=== PATIENT | male | born 1945 | race Caucasian/White ===

== ENCOUNTER 2021-06-01 00:59 | Emergency (ER) | payer OTHER, SELFPAY ==
[~2021-06-01] VITALS: Ht 175.3 cm; Wt 99.5 kg
[~2021-06-01 00:59] MED LIST: NOCURR
[2021-06-01 03:08] LABS: BASOPHILS % (AUTO) 0.6 % (0.0-2.0); EOSINOPHILS % (AUTO) 2.1 % (1.0-6.0); HEMATOCRIT 41.9 % (41-53); HEMOGLOBIN 13.9 g/dL (13.5-17.5); LYMPHOCYTES # (AUTO) 1.1 K/uL (1.0-4.8); LYMPHOCYTES % (AUTO) 13.7 % (22.0-44.0); MEAN CORPUSCULAR HEMOGLOBIN 29.9 pg (26.0-34.0); MEAN CORPUSCULAR HGB CONC 33.2 G/dL (31.0-37.0); MEAN CORPUSCULAR VOLUME 90 fL (80-100); MONOCYTES % (AUTO) 12.6 % (2.0-9.0); NEUTROPHILS # (AUTO) 5.8 K/uL (1.8-7.7); PLATELET COUNT (AUTO) 169 K/uL (150-450); RED BLOOD CELL COUNT(AUTO) 4.65 MIL/uL (4.50-5.90); RED CELL DISTRIBUTION WIDTH 14.3 % (11.5-14.5)
[2021-06-01 03:09] LABS: APPEARANCE,URINE CLEAR (CLEAR); BILIRUBIN,URINE NEGATIVE (NEGATIVE); GLUCOSE, URINE (UA) NEGATIVE (NEGATIVE); KETONES,URINE NEGATIVE (NEGATIVE); LEUKOCYTE ESTERASE ,URINE MODERATE (NEGATIVE); NITRATE,URINE NEGATIVE (NEGATIVE); OCCULT BLOOD,URINE TRACE (NEGATIVE); PH,URINE 5.5 (5.0-8.0); PROTEIN,URINE TRACE mg/dL (NEGATIVE); SPECIFIC GRAVITIY, URINE 1.019 (1.003-1.030); UROBILINOGEN,URINE <=1.0 mg/dL (<=1.0)
[2021-06-01 03:18] LABS: ANION GAP 7 mmol/L (8-16); CALCIUM, TOTAL 10.2 mg/dL (8.8-10.5); CARBON DIOXIDE 33 mmol/L (22-29); CHLORIDE 103 mmol/L (98-107); CREATININE 1.17 mg/dL (0.60-1.30); GLUCOSE,RANDOM 97 mg/dL (70-110); SODIUM SERUM 143 mmol/L (136-145); UREA NITROGEN, BLOOD 24 mg/dL (7-18)
[2021-06-01 03:19] LABS: GLOMERULAR FILTR. RATE CALC > 60 mL/min (>60)
[2021-06-01 03:21] LABS: INR 1.2 (0.9-1.1); PROTHROMBIN TIME 12.3 SEC (9.4-11.6)
[2021-06-01 03:24] LABS: BACTERIA,URINE Many /HPF (None Seen); SQUAMOUS EPITHELIAL CELL,UR Few /LPF (None Seen)
[2021-06-01 03:26] LABS: B-TYPE NATRIURETIC PEPTIDE 225 pg/mL (0-100)
[2021-06-01] MEDS ORDERED: FUROSEMIDE 20 MG/2 ML VIAL IVP ONE (03:30)
[2021-06-01 03:42] LABS: ALANINE AMINOTRANSFERASE 22 U/L (12-78); ALBUMIN 3.7 g/dL (3.4-5.0); ALKALINE PHOSPHATASE 88 U/L (46-116); ASPARTATE AMINOTRANSFERASE 21 U/L (15-37); BILIRUBIN,TOTAL 1.1 mg/dL (0.1-1.0); CREATINE KINASE, TOTAL ONLY 145 U/L (39-308); TOTAL PROTEIN, SERUM 7.1 g/dL (6.4-8.2)
[2021-06-01 03:55] VITALS: BP 104/43
[2021-06-01] MEDS ORDERED: ALBUTEROL SULFATE 2.5 MG/0.5 ML NEB SOLUTION NEB ONE (05:00)
[2021-06-01] MEDS ORDERED: IPRATROPIUM BROMIDE 0.5 MG/2.5 ML NEB SOLUTION NEB ONE (05:00)
[2021-06-01] MEDS ORDERED: AZIT250T9 PO (06:31)
[2021-06-01] MEDS ORDERED: AZITHROMYCIN 500 MG TABLET PO ONE (06:45)
== END 2021-06-01 07:35 ==
LOC: EMS 01:00
DX: J40 Bronchitis, not specified as acute or chronic (principal); I11.0 Hypertensive heart disease with heart failure; I50.9 Heart failure, unspecified; J44.9 Chronic obstructive pulmonary disease, unspecified; F12.90 Cannabis use, unspecified, uncomplicated; F17.210 Nicotine dependence, cigarettes, uncomplicated
CPT/HCPCS: 36415; 71045; 80053; 81001; 82550; 83880; 84484; 85025; 85610; 85730; 87086; 93005; 94640; 96374; 99285; J1940; Q9967; J7613

== ENCOUNTER 2021-06-30 20:44 | Inpatient (IN) | payer OTHER ==
[~2021-06-30] VITALS: Ht 175.3 cm; Wt 104.1 kg
[~2021-06-30 20:44] MED LIST changes: +AZIT250T9 PO
[2021-06-30] MEDS ORDERED: FUROSEMIDE 40 MG/4 ML VIAL IVP ONE (21:30)
[2021-06-30 21:38] LABS: COVID AG,FIA SOURCE NASAL SWAB
[2021-06-30 21:41] LABS: BASOPHILS % (AUTO) 0.5 % (0.0-2.0); HEMATOCRIT 39.4 % (41-53); HEMOGLOBIN 12.9 g/dL (13.5-17.5); LYMPHOCYTES # (AUTO) 0.7 K/uL (1.0-4.8); LYMPHOCYTES % (AUTO) 8.3 % (22.0-44.0); MEAN CORPUSCULAR HEMOGLOBIN 29.9 pg (26.0-34.0); MEAN CORPUSCULAR HGB CONC 32.9 G/dL (31.0-37.0); MEAN CORPUSCULAR VOLUME 91 fL (80-100); MONOCYTES # (AUTO) 0.9 K/uL (0.1-1.0); MONOCYTES % (AUTO) 10.8 % (2.0-9.0); NEUTROPHILS # (AUTO) 6.6 K/uL (1.8-7.7); NEUTROPHILS % (AUTO) 79.4 % (40.0-70.0); PLATELET COUNT (AUTO) 169 K/uL (150-450); RED BLOOD CELL COUNT(AUTO) 4.33 MIL/uL (4.50-5.90); RED CELL DISTRIBUTION WIDTH 14.4 % (11.5-14.5)
[2021-06-30 21:52] LABS: ANION GAP 6 mmol/L (8-16); CALCIUM, TOTAL 9.7 mg/dL (8.8-10.5); CARBON DIOXIDE 30 mmol/L (22-29); CHLORIDE 106 mmol/L (98-107); CREATININE 0.84 mg/dL (0.60-1.30); GLOMERULAR FILTR. RATE CALC > 60 mL/min (>60); GLUCOSE,RANDOM 73 mg/dL (70-110); POTASSIUM 4.6 mmol/L (3.5-5.1); SODIUM SERUM 142 mmol/L (136-145); UREA NITROGEN, BLOOD 17 mg/dL (7-18)
[2021-06-30 21:54] LABS: INR 1.1 (0.9-1.1); PROTHROMBIN TIME 11.5 SEC (9.4-11.6)
[2021-06-30 21:56] LABS: B-TYPE NATRIURETIC PEPTIDE 549 pg/mL (0-100)
[2021-06-30 21:58] LABS: ALANINE AMINOTRANSFERASE 17 U/L (12-78); ALBUMIN 3.4 g/dL (3.4-5.0); ALKALINE PHOSPHATASE 76 U/L (46-116); ASPARTATE AMINOTRANSFERASE 17 U/L (15-37); BILIRUBIN,TOTAL 0.5 mg/dL (0.1-1.0); TOTAL PROTEIN, SERUM 7.1 g/dL (6.4-8.2)
[2021-06-30] MEDS ORDERED: FURO40 PO (22:38)
[2021-06-30] MEDS ORDERED: METO50 PO (22:38)
[2021-06-30] MEDS ORDERED: APIX5TAB PO (22:38)
[2021-06-30] MEDS ORDERED: IPRAHFA IH (22:38)
[2021-06-30] MEDS ORDERED: ACETAMINOPHEN 325 MG TABLET PO PRN (22:45)
[2021-06-30] MEDS ORDERED: ONDANSETRON HCL 4 MG/2 ML VIAL IVP PRN ×2 (22:45)
[2021-06-30] MEDS ORDERED: 0.9% SODIUM CHLORIDE 10 ML SYRINGE IVP PRN (22:45)
[2021-06-30] MEDS ORDERED: HYDROCODONE/ACETAMINOPHEN 5-325 MG TABLET PO PRN (22:45)
[2021-06-30] MEDS ORDERED: MAGNESIUM HYDROXIDE SUSPENSION 30 ML UDCUP PO PRN (22:45)
[2021-06-30] MEDS ORDERED: BISACODYL 10 MG RECTAL RECTAL SUPPOSITORY PR PRN (22:45)
[2021-06-30] MEDS ORDERED: MORPHINE SULFATE 2 MG/ML SYRINGE IVP PRN (22:45)
[2021-06-30] MEDS ORDERED: ZOLPIDEM TARTRATE 5 MG TABLET PO PRN (22:45)
[2021-06-30 22:56] LABS: APPEARANCE,URINE CLEAR (CLEAR); BILIRUBIN,URINE NEGATIVE (NEGATIVE); GLUCOSE, URINE (UA) NEGATIVE (NEGATIVE); KETONES,URINE NEGATIVE (NEGATIVE); LEUKOCYTE ESTERASE ,URINE NEGATIVE (NEGATIVE); NITRATE,URINE NEGATIVE (NEGATIVE); OCCULT BLOOD,URINE NEGATIVE (NEGATIVE); PROTEIN,URINE NEGATIVE (NEGATIVE); SPECIFIC GRAVITIY, URINE 1.007 (1.003-1.030); UROBILINOGEN,URINE <=1.0 mg/dL (<=1.0)
[2021-07-01] MEDS ORDERED: HEPARIN SODIUM,PORCINE 5,000 UNITS/ML VIAL SQ SCH
[2021-07-01] MEDS: PANTOPRAZOLE SODIUM 40 MG DR TABLET PO SCH (08:43)
[2021-07-01] MEDS: ASPIRIN 81 MG DR TABLET PO SCH (08:43)
[2021-07-01] MEDS: FUROSEMIDE 20 MG/2 ML VIAL IVP SCH ×2 (08:43→20:07)
[2021-07-01] MEDS: DOCUSATE SODIUM 100 MG CAPSULE PO SCH ×2 (08:43→20:07)
[2021-07-01] MEDS: CARVEDILOL 6.25 MG TABLET PO SCH ×2 (08:43→20:05)
[2021-07-01] MEDS: IPRATROPIUM BROMIDE HFA 17 MCG/PUFF 12.9 GM INHALER IH SCH ×2 (08:44→14:15)
[2021-07-01 08:45] VITALS: BP 132/81
[2021-07-01] MEDS: METOPROLOL TARTRATE 50 MG TABLET PO SCH ×2 (14:00→20:05)
[2021-07-01 14:10] VITALS: BP 96/48
[2021-07-01] MEDS: APIXABAN 5 MG TABLET PO SCH ×2 (14:15→20:07)
[2021-07-01] MEDS: ALBUTEROL SULFATE 2.5 MG/0.5 ML NEB SOLUTION NEB PRN (18:56)
[2021-07-01] MEDS: IPRATROPIUM BROMIDE 0.5 MG/2.5 ML NEB SOLUTION NEB PRN (18:56)
[2021-07-01] MEDS: ACETAMINOPHEN 325 MG TABLET PO PRN (20:07)
[2021-07-01 20:08] VITALS: BP 96/58
[2021-07-02] MEDS: ACETAMINOPHEN 325 MG TABLET PO PRN ×2 (02:52→20:41)
[2021-07-02 04:49] VITALS: BP 105/72
[2021-07-02 08:07] VITALS: BP 106/65
[2021-07-02] MEDS: DOCUSATE SODIUM 100 MG CAPSULE PO SCH ×2 (09:00→20:41)
[2021-07-02] MEDS: FUROSEMIDE 20 MG/2 ML VIAL IVP SCH ×2 (09:00→20:41)
[2021-07-02] MEDS: CARVEDILOL 6.25 MG TABLET PO SCH ×2 (09:00→21:00)
[2021-07-02] MEDS: METOPROLOL TARTRATE 50 MG TABLET PO SCH ×2 (09:00→21:00)
[2021-07-02] MEDS: ASPIRIN 81 MG DR TABLET PO SCH (09:27)
[2021-07-02] MEDS: PANTOPRAZOLE SODIUM 40 MG DR TABLET PO SCH (09:27)
[2021-07-02] MEDS: APIXABAN 5 MG TABLET PO SCH ×2 (09:27→20:44)
[2021-07-02] MEDS: ALBUTEROL SULFATE 2.5 MG/0.5 ML NEB SOLUTION NEB PRN ×2 (09:40→21:09)
[2021-07-02] MEDS: IPRATROPIUM BROMIDE 0.5 MG/2.5 ML NEB SOLUTION NEB PRN ×2 (09:40→21:09)
[2021-07-02 16:03] VITALS: BP 112/73
[2021-07-02 19:45] VITALS: BP 93/60
[2021-07-03] MEDS: ACETAMINOPHEN 325 MG TABLET PO PRN (01:24)
[2021-07-03 04:25] VITALS: BP 98/51
[2021-07-03 08:07] VITALS: BP 110/70
[2021-07-03] MEDS: METOPROLOL TARTRATE 50 MG TABLET PO SCH (09:00)
[2021-07-03] MEDS: ASPIRIN 81 MG DR TABLET PO SCH (10:33)
[2021-07-03] MEDS: FUROSEMIDE 20 MG/2 ML VIAL IVP SCH (10:33)
[2021-07-03] MEDS: APIXABAN 5 MG TABLET PO SCH (10:33)
[2021-07-03] MEDS: CARVEDILOL 6.25 MG TABLET PO SCH (10:33)
[2021-07-03] MEDS: PANTOPRAZOLE SODIUM 40 MG DR TABLET PO SCH (10:33)
[2021-07-03] MEDS: DOCUSATE SODIUM 100 MG CAPSULE PO SCH (10:33)
[2021-07-03] MEDS: ALBUTEROL SULFATE 2.5 MG/0.5 ML NEB SOLUTION NEB PRN (12:12)
[2021-07-03] MEDS: IPRATROPIUM BROMIDE 0.5 MG/2.5 ML NEB SOLUTION NEB PRN (12:12)
[2021-07-03 15:39] VITALS: BP 96/63
== END 2021-07-03 16:35 | DRG 291 ==
LOC: EMS 20:50 → 6S 07-01 05:06
PROVIDERS: ADMIT Internal Medicine; ATTEND Internal Medicine
DX: I11.0 Hypertensive heart disease with heart failure (principal); I50.23 Acute on chronic systolic (congestive) heart failure; E66.9 Obesity, unspecified; G47.33 Obstructive sleep apnea (adult) (pediatric); Z68.33 Body mass index [BMI] 33.0-33.9, adult; F17.210 Nicotine dependence, cigarettes, uncomplicated; F12.90 Cannabis use, unspecified, uncomplicated; Z20.822 Contact with and (suspected) exposure to COVID-19; I48.91 Unspecified atrial fibrillation; J44.9 Chronic obstructive pulmonary disease, unspecified; Z86.73 Personal history of transient ischemic attack (TIA), and cerebral infarction without residual deficits; Z79.01 Long term (current) use of anticoagulants; Z79.899 Other long term (current) drug therapy; Z79.82 Long term (current) use of aspirin
CPT/HCPCS: 71045; 80053; 81003; 83880; 84484; 85025; 85610; 85730; 93005; 94640; 99285; J1940; J3535; 36415-L1; 36415-TC; J7613

== ENCOUNTER 2021-07-21 06:46 | Inpatient (IN) | payer OTHER ==
[~2021-07-21] VITALS: Ht 175.3 cm; Wt 108.5 kg
[~2021-07-21 06:46] MED LIST changes: +APIX5TAB PO; +FURO40 PO; +IPRAHFA IH; +METO50 PO
[2021-07-21 07:31] LABS: COVID AG,FIA SOURCE NASOPHARYNGEAL
[2021-07-21 07:35] LABS: BASOPHILS % (AUTO) 0.6 % (0.0-2.0); EOSINOPHILS % (AUTO) 1.6 % (1.0-6.0); HEMATOCRIT 38.2 % (41-53); HEMOGLOBIN 12.7 g/dL (13.5-17.5); LYMPHOCYTES # (AUTO) 0.7 K/uL (1.0-4.8); LYMPHOCYTES % (AUTO) 13.7 % (22.0-44.0); MEAN CORPUSCULAR HEMOGLOBIN 30.1 pg (26.0-34.0); MEAN CORPUSCULAR HGB CONC 33.3 G/dL (31.0-37.0); MEAN CORPUSCULAR VOLUME 90 fL (80-100); MONOCYTES # (AUTO) 0.7 K/uL (0.1-1.0); MONOCYTES % (AUTO) 13.2 % (2.0-9.0); NEUTROPHILS # (AUTO) 3.9 K/uL (1.8-7.7); NEUTROPHILS % (AUTO) 70.9 % (40.0-70.0); PLATELET COUNT (AUTO) 141 K/uL (150-450); RED BLOOD CELL COUNT(AUTO) 4.23 MIL/uL (4.50-5.90); RED CELL DISTRIBUTION WIDTH 14.4 % (11.5-14.5)
[2021-07-21] MEDS ORDERED: FUROSEMIDE 40 MG/4 ML VIAL IVP ONE (07:45)
[2021-07-21 07:49] LABS: ANION GAP 7 mmol/L (8-16); CALCIUM, TOTAL 9.6 mg/dL (8.8-10.5); CARBON DIOXIDE 32 mmol/L (22-29); CHLORIDE 106 mmol/L (98-107); CREATININE 0.88 mg/dL (0.60-1.30); GLOMERULAR FILTR. RATE CALC > 60 mL/min (>60); GLUCOSE,RANDOM 130 mg/dL (70-110); SODIUM SERUM 145 mmol/L (136-145); UREA NITROGEN, BLOOD 10 mg/dL (7-18)
[2021-07-21 07:55] LABS: ALANINE AMINOTRANSFERASE 16 U/L (12-78); ALBUMIN 3.3 g/dL (3.4-5.0); ALKALINE PHOSPHATASE 104 U/L (46-116); ASPARTATE AMINOTRANSFERASE 15 U/L (15-37); B-TYPE NATRIURETIC PEPTIDE 580 pg/mL (0-100); BILIRUBIN,TOTAL 0.7 mg/dL (0.1-1.0); CREATINE KINASE, TOTAL ONLY 61 U/L (39-308); PHOSPHORUS 2.9 mg/dL (2.5-4.9); TOTAL PROTEIN, SERUM 6.7 g/dL (6.4-8.2)
[2021-07-21 07:58] LABS: INFLUENZA TYPE A NEGATIVE FOR TYPE A (NEGATIVE); INFLUENZA TYPE B NEGATIVE FOR TYPE B (NEGATIVE)
[2021-07-21 08:39] LABS: INR 1.1 (0.9-1.1); PROTHROMBIN TIME 11.9 SEC (9.4-11.6)
[2021-07-21] MEDS ORDERED: ACETAMINOPHEN 325 MG TABLET PO PRN (09:15)
[2021-07-21] MEDS ORDERED: ALBUTEROL SULFATE 2.5 MG/0.5 ML NEB SOLUTION NEB PRN (09:15)
[2021-07-21] MEDS ORDERED: ONDANSETRON HCL 4 MG/2 ML VIAL IVP PRN (09:15)
[2021-07-21 09:33] VITALS: BP 148/91
[2021-07-21 14:30] VITALS: BP 92/59
[2021-07-21] MEDS: PredniSONE 20 MG TABLET PO SCH (16:03)
[2021-07-21] MEDS: ALBUTEROL SULFATE 2.5 MG/0.5 ML NEB SOLUTION NEB PRN (18:40)
[2021-07-21 19:10] VITALS: BP 114/75
[2021-07-21] MEDS: APIXABAN 5 MG TABLET PO SCH (20:39)
[2021-07-21] MEDS: METOPROLOL TARTRATE 25 MG TABLET PO SCH (20:40)
[2021-07-21] MEDS: DOCUSATE SODIUM 100 MG CAPSULE PO SCH (20:40)
[2021-07-21 23:40] VITALS: BP 113/72
[2021-07-22 04:10] VITALS: BP 101/59
[2021-07-22 07:35] VITALS: BP 96/59
[2021-07-22] MEDS: FUROSEMIDE 40 MG/4 ML VIAL IVP SCH (08:06)
[2021-07-22] MEDS: DOCUSATE SODIUM 100 MG CAPSULE PO SCH ×2 (08:06→19:58)
[2021-07-22] MEDS: PredniSONE 20 MG TABLET PO SCH (08:06)
[2021-07-22] MEDS: APIXABAN 5 MG TABLET PO SCH ×2 (08:06→19:58)
[2021-07-22] MEDS: METOPROLOL TARTRATE 25 MG TABLET PO SCH ×2 (08:07→20:01)
[2021-07-22] MEDS: FAMOTIDINE 20 MG TABLET PO SCH (08:07)
[2021-07-22 11:51] VITALS: BP 101/61
[2021-07-22] MEDS: ALBUTEROL SULFATE 2.5 MG/0.5 ML NEB SOLUTION NEB PRN ×2 (12:32→18:47)
[2021-07-22 15:42] VITALS: BP 101/58
[2021-07-22] MEDS ORDERED: BISACODYL 10 MG RECTAL RECTAL SUPPOSITORY PR PRN (16:45)
[2021-07-22] MEDS: MAGNESIUM HYDROXIDE SUSPENSION 30 ML UDCUP PO PRN (17:12)
[2021-07-22 19:54] VITALS: BP 97/67
[2021-07-23] VITALS (7 sets, daily range): BP systolic 98–111; BP diastolic 58–72
[2021-07-23] MEDS: DOCUSATE SODIUM 100 MG CAPSULE PO SCH ×2 (08:11→21:05)
[2021-07-23] MEDS: FUROSEMIDE 40 MG/4 ML VIAL IVP SCH (08:11)
[2021-07-23] MEDS: METOPROLOL TARTRATE 25 MG TABLET PO SCH ×2 (08:12→21:00)
[2021-07-23] MEDS: FAMOTIDINE 20 MG TABLET PO SCH (08:12)
[2021-07-23] MEDS: PredniSONE 20 MG TABLET PO SCH (08:12)
[2021-07-23] MEDS: APIXABAN 5 MG TABLET PO SCH ×2 (08:12→21:05)
[2021-07-23] MEDS: MAGNESIUM HYDROXIDE SUSPENSION 30 ML UDCUP PO PRN (08:14)
[2021-07-23] MEDS: ALBUTEROL SULFATE 2.5 MG/0.5 ML NEB SOLUTION NEB PRN (10:17)
[2021-07-23] MEDS ORDERED: PredniSONE 20 MG TABLET PO ONE (10:30)
[2021-07-23 11:42] LABS: BASOPHILS % (AUTO) 0.1 % (0.0-2.0); EOSINOPHILS % (AUTO) 0.2 % (1.0-6.0); HEMATOCRIT 39.1 % (41-53); HEMOGLOBIN 12.8 g/dL (13.5-17.5); LYMPHOCYTES # (AUTO) 0.6 K/uL (1.0-4.8); LYMPHOCYTES % (AUTO) 6.4 % (22.0-44.0); MEAN CORPUSCULAR HEMOGLOBIN 29.3 pg (26.0-34.0); MEAN CORPUSCULAR HGB CONC 32.7 G/dL (31.0-37.0); MEAN CORPUSCULAR VOLUME 90 fL (80-100); MONOCYTES # (AUTO) 0.9 K/uL (0.1-1.0); MONOCYTES % (AUTO) 9.2 % (2.0-9.0); NEUTROPHILS # (AUTO) 8.3 K/uL (1.8-7.7); NEUTROPHILS % (AUTO) 84.1 % (40.0-70.0); PLATELET COUNT (AUTO) 155 K/uL (150-450); RED BLOOD CELL COUNT(AUTO) 4.35 MIL/uL (4.50-5.90); RED CELL DISTRIBUTION WIDTH 14.2 % (11.5-14.5)
[2021-07-23 11:57] LABS: ANION GAP 5 mmol/L (8-16); CALCIUM, TOTAL 9.8 mg/dL (8.8-10.5); CARBON DIOXIDE 34 mmol/L (22-29); CHLORIDE 104 mmol/L (98-107); CREATININE 0.84 mg/dL (0.60-1.30); GLOMERULAR FILTR. RATE CALC > 60 mL/min (>60); GLUCOSE,RANDOM 125 mg/dL (70-110); POTASSIUM 4.6 mmol/L (3.5-5.1); SODIUM SERUM 143 mmol/L (136-145); UREA NITROGEN, BLOOD 20 mg/dL (7-18)
[2021-07-23] MEDS: MOMETASONE FUROATE 50 MCG/SPRAY 17 GM NASAL SPRAY NASAL SCH ×2 (12:10→21:06)
[2021-07-23] MEDS: MONTELUKAST SODIUM 10 MG TABLET PO SCH (12:10)
[2021-07-23] MEDS: MELATONIN 3 MG TABLET PO PRN (23:00)
[2021-07-24 03:45] VITALS: BP 96/57
[2021-07-24 07:43] VITALS: BP 98/60
[2021-07-24] MEDS: FUROSEMIDE 40 MG/4 ML VIAL IVP SCH (08:28)
[2021-07-24] MEDS: PredniSONE 20 MG TABLET PO SCH (08:30)
[2021-07-24] MEDS: METOPROLOL TARTRATE 25 MG TABLET PO SCH ×2 (08:32→20:07)
[2021-07-24] MEDS: FAMOTIDINE 20 MG TABLET PO SCH (08:32)
[2021-07-24] MEDS: MONTELUKAST SODIUM 10 MG TABLET PO SCH (08:32)
[2021-07-24] MEDS: APIXABAN 5 MG TABLET PO SCH ×2 (08:33→20:05)
[2021-07-24] MEDS: DOCUSATE SODIUM 100 MG CAPSULE PO SCH ×2 (08:33→20:06)
[2021-07-24] MEDS: MOMETASONE FUROATE 50 MCG/SPRAY 17 GM NASAL SPRAY NASAL SCH ×2 (08:38→20:06)
[2021-07-24] MEDS ORDERED: 0.9% SODIUM CHLORIDE 5 ML NEB SOLUTION NEB ONE (09:43)
[2021-07-24] MEDS: ALBUTEROL SULFATE 2.5 MG/0.5 ML NEB SOLUTION NEB PRN (09:47)
[2021-07-24 11:28] VITALS: BP 87/58
[2021-07-24 16:16] VITALS: BP 98/66
[2021-07-24 19:57] VITALS: BP 97/51
[2021-07-24] MEDS: MELATONIN 3 MG TABLET PO PRN (20:06)
[2021-07-25] MEDS: BENZONATATE 100 MG CAPSULE PO PRN ×2 (00:13→18:29)
[2021-07-25 00:15] VITALS: BP 107/62
[2021-07-25 05:35] VITALS: BP 109/75
[2021-07-25 07:51] VITALS: BP 120/73
[2021-07-25] MEDS: MONTELUKAST SODIUM 10 MG TABLET PO SCH (09:03)
[2021-07-25] MEDS: DOCUSATE SODIUM 100 MG CAPSULE PO SCH ×2 (09:03→20:39)
[2021-07-25] MEDS: PredniSONE 20 MG TABLET PO SCH (09:04)
[2021-07-25] MEDS: APIXABAN 5 MG TABLET PO SCH ×2 (09:04→20:39)
[2021-07-25] MEDS: FUROSEMIDE 20 MG TABLET PO SCH (09:05)
[2021-07-25] MEDS: METOPROLOL TARTRATE 25 MG TABLET PO SCH ×2 (09:05→20:41)
[2021-07-25] MEDS: FAMOTIDINE 20 MG TABLET PO SCH (09:05)
[2021-07-25] MEDS: MOMETASONE FUROATE 50 MCG/SPRAY 17 GM NASAL SPRAY NASAL SCH ×2 (09:06→20:39)
[2021-07-25 11:17] VITALS: BP 107/68
[2021-07-25 15:28] VITALS: BP 111/74
[2021-07-25] MEDS: MethylPREDNISolone SOD SUCC 125 MG/2 ML VIAL IVP SCH ×2 (18:27→23:35)
[2021-07-25] MEDS: IPRATROPIUM BROMIDE 0.5 MG/2.5 ML NEB SOLUTION NEB SCH ×2 (19:00→23:25)
[2021-07-25] MEDS: ALBUTEROL SULFATE 2.5 MG/0.5 ML NEB SOLUTION NEB SCH ×2 (19:00→23:25)
[2021-07-25 19:55] VITALS: BP 137/94
[2021-07-25] MEDS: BUDESONIDE 0.5 MG/2 ML NEB SOLUTION NEB SCH (21:00)
[2021-07-25] MEDS: MELATONIN 3 MG TABLET PO PRN (22:36)
[2021-07-26] VITALS (7 sets, daily range): BP systolic 93–139; BP diastolic 59–98
[2021-07-26] MEDS: IPRATROPIUM BROMIDE 0.5 MG/2.5 ML NEB SOLUTION NEB SCH ×6 (04:12→23:19)
[2021-07-26] MEDS: ALBUTEROL SULFATE 2.5 MG/0.5 ML NEB SOLUTION NEB SCH ×6 (04:12→23:19)
[2021-07-26] MEDS: MethylPREDNISolone SOD SUCC 125 MG/2 ML VIAL IVP SCH ×4 (06:25→23:05)
[2021-07-26] MEDS: BUDESONIDE 0.5 MG/2 ML NEB SOLUTION NEB SCH (08:21)
[2021-07-26] MEDS: METOPROLOL TARTRATE 25 MG TABLET PO SCH ×2 (08:40→21:00)
[2021-07-26] MEDS: MOMETASONE FUROATE 50 MCG/SPRAY 17 GM NASAL SPRAY NASAL SCH ×2 (08:40→21:26)
[2021-07-26] MEDS: FUROSEMIDE 20 MG TABLET PO SCH (08:40)
[2021-07-26] MEDS: DOCUSATE SODIUM 100 MG CAPSULE PO SCH ×2 (08:40→21:26)
[2021-07-26] MEDS: APIXABAN 5 MG TABLET PO SCH (08:40)
[2021-07-26] MEDS: MONTELUKAST SODIUM 10 MG TABLET PO SCH (08:40)
[2021-07-26] MEDS: FAMOTIDINE 20 MG TABLET PO SCH (08:40)
[2021-07-26 11:02] LABS: ABG BASE EXCESS 1.1 mmol/L (-2.0-3.0); ABG CARBOXYHEMOGLOBIN 1.4 % (0.0-1.5); ABG HCO3 25.3 mmol/L (22.0-26.0); ABG METHEMOGLOBIN 0.3 % (0.0-1.5); ABG OXYGEN CONTENT 19.5 mL/dL (15.0-23.0); ABG OXYGEN SATURATION 96.4 % (95.0-98.0); ABG OXYHEMOGLOBIN 94.8 % (94.0-100.0); ABG PCO2 41 mmHg (35-45); ABG PH 7.412 (7.35-7.450); ABG TOTAL HEMOGLOBIN 14.6 G/dL (12.0-18.0); PO2, ARTERIAL BG 80.6 mmHg (75.0-83.0); SOURCE, BLOOD GAS ARTERIAL; TEMPERATURE, FAHRENHEIT, BG 97.8 FAHREN (96.0-98.6)
[2021-07-26 11:03] LABS: SITE, BLOOD GAS RT RADIAL
[2021-07-26 11:04] LABS: ABG A-A DIFF O2 70.7 mmHg (10-20.0); O2 DEVICE,BLOOD GAS CANNULA (ROOM AIR)
[2021-07-26] MEDS ORDERED: SODIUM CHLORIDE 0.9% 250 ML IV ONE (11:44)
[2021-07-26] MEDS: DOXYCYCLINE HYCLATE 100 MG TABLET PO SCH ×2 (11:45→21:26)
[2021-07-26] MEDS: CefTRIAXone SODIUM 2 GM in DEXTROSE 5%-WATER 50 ML IV SCH (11:46)
[2021-07-27] VITALS (7 sets, daily range): BP systolic 93–123; BP diastolic 60–74
[2021-07-27] MEDS: IPRATROPIUM BROMIDE 0.5 MG/2.5 ML NEB SOLUTION NEB SCH ×6 (03:27→23:00)
[2021-07-27] MEDS: ALBUTEROL SULFATE 2.5 MG/0.5 ML NEB SOLUTION NEB SCH ×6 (03:27→23:00)
[2021-07-27] MEDS: MethylPREDNISolone SOD SUCC 125 MG/2 ML VIAL IVP SCH ×4 (06:49→23:30)
[2021-07-27] MEDS: DOCUSATE SODIUM 100 MG CAPSULE PO SCH ×2 (09:00→20:53)
[2021-07-27] MEDS: BUDESONIDE 0.5 MG/2 ML NEB SOLUTION NEB SCH ×2 (09:31→19:23)
[2021-07-27] MEDS ORDERED: SODIUM CHLORIDE 0.9% 1,000 ML ONE (09:58)
[2021-07-27] MEDS ORDERED: MIDAZOLAM HCL 2 MG/2 ML VIAL ONE ×3 (10:06→10:21)
[2021-07-27] MEDS ORDERED: FentaNYL CITRATE PF 100 MCG/2 ML VIAL ONE ×3 (10:06→10:22)
[2021-07-27] MEDS ORDERED: SODIUM CHLORIDE 0.9% 10 ML ONE (10:08)
[2021-07-27] MEDS ORDERED: SODIUM CHLORIDE 0.9% 250 ML IV ONE (12:43)
[2021-07-27] MEDS: MONTELUKAST SODIUM 10 MG TABLET PO SCH (12:45)
[2021-07-27] MEDS: METOPROLOL TARTRATE 25 MG TABLET PO SCH ×2 (12:45→21:00)
[2021-07-27] MEDS: FAMOTIDINE 20 MG TABLET PO SCH (12:45)
[2021-07-27] MEDS: CefTRIAXone SODIUM 2 GM in DEXTROSE 5%-WATER 50 ML IV SCH (12:46)
[2021-07-27] MEDS: FUROSEMIDE 20 MG TABLET PO SCH (12:46)
[2021-07-27] MEDS: DOXYCYCLINE HYCLATE 100 MG TABLET PO SCH ×2 (12:48→20:53)
[2021-07-27] MEDS: MOMETASONE FUROATE 50 MCG/SPRAY 17 GM NASAL SPRAY NASAL SCH ×2 (12:49→20:54)
[2021-07-27] MEDS ORDERED: ALBUTEROL SULFATE 2.5 MG/0.5 ML NEB SOLUTION NEB ONE (16:30)
[2021-07-27] MEDS ORDERED: LIDOCAINE 2% 5 ML JELLY TP ONE (16:30)
[2021-07-27] MEDS ORDERED: BENZOCAINE 20% 50 MCG/SPRAY 57 GM TP ONE (16:30)
[2021-07-27] MEDS ORDERED: LIDOCAINE 4% 50 ML SOLUTION TP ONE (16:30)
[2021-07-27] MEDS: MELATONIN 3 MG TABLET PO PRN (20:53)
[2021-07-27] MEDS: BENZONATATE 100 MG CAPSULE PO PRN (22:41)
[2021-07-28 04:00] VITALS: BP 130/84
[2021-07-28] MEDS: ALBUTEROL SULFATE 2.5 MG/0.5 ML NEB SOLUTION NEB SCH ×6 (04:24→23:14)
[2021-07-28] MEDS: IPRATROPIUM BROMIDE 0.5 MG/2.5 ML NEB SOLUTION NEB SCH ×6 (04:24→23:13)
[2021-07-28] MEDS: MethylPREDNISolone SOD SUCC 125 MG/2 ML VIAL IVP SCH ×3 (05:07→18:12)
[2021-07-28 07:49] VITALS: BP 126/78
[2021-07-28] MEDS: BUDESONIDE 0.5 MG/2 ML NEB SOLUTION NEB SCH ×2 (08:15→19:34)
[2021-07-28] MEDS: MONTELUKAST SODIUM 10 MG TABLET PO SCH (08:20)
[2021-07-28] MEDS: DOXYCYCLINE HYCLATE 100 MG TABLET PO SCH ×2 (08:20→20:19)
[2021-07-28] MEDS: FUROSEMIDE 20 MG TABLET PO SCH (08:20)
[2021-07-28] MEDS: DOCUSATE SODIUM 100 MG CAPSULE PO SCH ×3 (08:21→20:25)
[2021-07-28] MEDS: METOPROLOL TARTRATE 25 MG TABLET PO SCH ×2 (08:21→20:19)
[2021-07-28] MEDS: MOMETASONE FUROATE 50 MCG/SPRAY 17 GM NASAL SPRAY NASAL SCH ×2 (08:21→20:23)
[2021-07-28] MEDS: FAMOTIDINE 20 MG TABLET PO SCH (08:21)
[2021-07-28] MEDS: CefTRIAXone SODIUM 2 GM in DEXTROSE 5%-WATER 50 ML IV SCH (11:00)
[2021-07-28 11:46] VITALS: BP 94/60
[2021-07-28 20:22] VITALS: BP 107/65
[2021-07-29 00:15] VITALS: BP 97/59
[2021-07-29] MEDS: MethylPREDNISolone SOD SUCC 125 MG/2 ML VIAL IVP SCH ×3 (00:15→11:47)
[2021-07-29 00:40] VITALS: BP 106/73
[2021-07-29] MEDS: MELATONIN 3 MG TABLET PO PRN ×2 (01:40→20:16)
[2021-07-29] MEDS: ALBUTEROL SULFATE 2.5 MG/0.5 ML NEB SOLUTION NEB SCH ×6 (03:00→23:46)
[2021-07-29] MEDS: IPRATROPIUM BROMIDE 0.5 MG/2.5 ML NEB SOLUTION NEB SCH ×6 (03:00→23:45)
[2021-07-29 07:35] VITALS: BP 118/80
[2021-07-29] MEDS: BUDESONIDE 0.5 MG/2 ML NEB SOLUTION NEB SCH ×2 (08:14→20:31)
[2021-07-29] MEDS: METOPROLOL TARTRATE 25 MG TABLET PO SCH ×2 (08:21→20:15)
[2021-07-29] MEDS: FUROSEMIDE 20 MG TABLET PO SCH (08:23)
[2021-07-29] MEDS: DOCUSATE SODIUM 100 MG CAPSULE PO SCH ×2 (08:23→20:15)
[2021-07-29] MEDS: MONTELUKAST SODIUM 10 MG TABLET PO SCH (08:23)
[2021-07-29] MEDS: FAMOTIDINE 20 MG TABLET PO SCH (08:23)
[2021-07-29] MEDS: DOXYCYCLINE HYCLATE 100 MG TABLET PO SCH ×2 (08:23→20:15)
[2021-07-29] MEDS: MOMETASONE FUROATE 50 MCG/SPRAY 17 GM NASAL SPRAY NASAL SCH ×2 (08:25→20:16)
[2021-07-29 11:05] VITALS: BP 109/60
[2021-07-29] MEDS: CefTRIAXone SODIUM 2 GM in DEXTROSE 5%-WATER 50 ML IV SCH (11:39)
[2021-07-29 15:48] VITALS: BP 109/75
[2021-07-29] MEDS: MethylPREDNISolone SOD SUCC 40 MG/ML VIAL IVP SCH ×2 (18:08→23:21)
[2021-07-29 20:06] VITALS: BP 109/75
[2021-07-30 00:59] VITALS: BP 117/60
[2021-07-30] MEDS: IPRATROPIUM BROMIDE 0.5 MG/2.5 ML NEB SOLUTION NEB SCH ×6 (02:25→23:00)
[2021-07-30] MEDS: ALBUTEROL SULFATE 2.5 MG/0.5 ML NEB SOLUTION NEB SCH ×6 (02:26→23:00)
[2021-07-30] MEDS: MethylPREDNISolone SOD SUCC 40 MG/ML VIAL IVP SCH (05:49)
[2021-07-30 05:52] VITALS: BP 113/74
[2021-07-30 07:25] VITALS: BP 110/75
[2021-07-30] MEDS: BUDESONIDE 0.5 MG/2 ML NEB SOLUTION NEB SCH ×2 (08:00→20:46)
[2021-07-30] MEDS: MOMETASONE FUROATE 50 MCG/SPRAY 17 GM NASAL SPRAY NASAL SCH ×2 (09:14→20:28)
[2021-07-30] MEDS: FAMOTIDINE 20 MG TABLET PO SCH (09:15)
[2021-07-30] MEDS: METOPROLOL TARTRATE 25 MG TABLET PO SCH ×2 (09:15→21:00)
[2021-07-30] MEDS: FUROSEMIDE 20 MG TABLET PO SCH (09:17)
[2021-07-30] MEDS: PredniSONE 20 MG TABLET PO SCH (09:17)
[2021-07-30] MEDS: MONTELUKAST SODIUM 10 MG TABLET PO SCH (09:17)
[2021-07-30] MEDS: DOCUSATE SODIUM 100 MG CAPSULE PO SCH ×2 (09:17→21:00)
[2021-07-30] MEDS: DOXYCYCLINE HYCLATE 100 MG TABLET PO SCH ×2 (09:17→20:28)
[2021-07-30] MEDS: CefTRIAXone SODIUM 2 GM in DEXTROSE 5%-WATER 50 ML IV SCH (09:18)
[2021-07-30] MEDS ORDERED: SODIUM CHLORIDE 0.9% 500 ML IV ONE (09:21)
[2021-07-30 12:04] VITALS: BP 98/71
[2021-07-30 17:00] VITALS: BP 101/74
[2021-07-30 19:29] VITALS: BP 102/71
[2021-07-30] MEDS: MELATONIN 3 MG TABLET PO PRN (20:28)
[2021-07-31 00:08] VITALS: BP 99/71
[2021-07-31] MEDS ORDERED: LORazepam 2 MG/ML VIAL IVP ONE (01:30)
[2021-07-31] MEDS: ALBUTEROL SULFATE 2.5 MG/0.5 ML NEB SOLUTION NEB SCH ×4 (03:00→15:12)
[2021-07-31] MEDS: IPRATROPIUM BROMIDE 0.5 MG/2.5 ML NEB SOLUTION NEB SCH ×4 (03:00→15:12)
[2021-07-31 03:26] VITALS: BP 115/83
[2021-07-31 07:46] VITALS: BP_SYST 129; BP_SYST 199; BP_DIAS 67
[2021-07-31] MEDS: BUDESONIDE 0.5 MG/2 ML NEB SOLUTION NEB SCH (08:11)
[2021-07-31] MEDS: METOPROLOL TARTRATE 25 MG TABLET PO SCH (08:22)
[2021-07-31] MEDS: FAMOTIDINE 20 MG TABLET PO SCH (08:22)
[2021-07-31] MEDS: DOXYCYCLINE HYCLATE 100 MG TABLET PO SCH (08:26)
[2021-07-31] MEDS: MONTELUKAST SODIUM 10 MG TABLET PO SCH (08:27)
[2021-07-31] MEDS: DOCUSATE SODIUM 100 MG CAPSULE PO SCH (08:27)
[2021-07-31] MEDS: PredniSONE 20 MG TABLET PO SCH (08:27)
[2021-07-31] MEDS: MOMETASONE FUROATE 50 MCG/SPRAY 17 GM NASAL SPRAY NASAL SCH (08:31)
[2021-07-31 08:34] VITALS: BP 127/92
[2021-07-31] MEDS: FUROSEMIDE 20 MG TABLET PO SCH (10:49)
[2021-07-31] MEDS: CefTRIAXone SODIUM 2 GM in DEXTROSE 5%-WATER 50 ML IV SCH (10:49)
[2021-07-31 11:07] VITALS: BP 103/69
[2021-07-31 15:43] VITALS: BP 97/65
== END 2021-07-31 19:20 | DRG 291 ==
LOC: EMS 06:49 → 5S 08:56
PROVIDERS: ADMIT Internal Medicine; ATTEND Internal Medicine
DX: I11.0 Hypertensive heart disease with heart failure (principal); J96.91 Respiratory failure, unspecified with hypoxia; I50.33 Acute on chronic diastolic (congestive) heart failure; J44.1 Chronic obstructive pulmonary disease with (acute) exacerbation; E87.2 Acidosis; I48.0 Paroxysmal atrial fibrillation; D46.4 Refractory anemia, unspecified; E66.9 Obesity, unspecified; F17.200 Nicotine dependence, unspecified, uncomplicated; I07.1 Rheumatic tricuspid insufficiency; I27.20 Pulmonary hypertension, unspecified; Z20.822 Contact with and (suspected) exposure to COVID-19; Z79.51 Long term (current) use of inhaled steroids; Z79.899 Other long term (current) drug therapy; Z95.0 Presence of cardiac pacemaker; Z68.35 Body mass index [BMI] 35.0-35.9, adult
CPT/HCPCS: 31623; 31624; 36600; 71045; 71250; 80048; 80053; 82550; 82805; 83735; 83880; 84100; 84484; 85025; 85610; 85730; 87015; 87070; 87081; 87101; 87206; 87220; 87804; 88305; 93005; 93306; 94640; 97162; 97165; 97535; 99291; J0696; J1940; J2060; J2250; J2920; J2930; J3010; J7030; J7040; J7050; J7060; 36415-L1; 36415-TC; J7613; Z7610

== ENCOUNTER 2021-12-02 00:37 | Inpatient (IN) | payer OTHER ==
[~2021-12-02] VITALS: Ht 175.3 cm; Wt 112.9 kg
[2021-12-02 01:19] LABS: EOSINOPHILS % (AUTO) 3.8 % (1.0-6.0); HEMATOCRIT 39.9 % (41-53); HEMOGLOBIN 13.3 g/dL (13.5-17.5); LYMPHOCYTES % (AUTO) 18.8 % (22.0-44.0); MEAN CORPUSCULAR HEMOGLOBIN 29.7 pg (26.0-34.0); MEAN CORPUSCULAR HGB CONC 33.4 G/dL (31.0-37.0); MEAN CORPUSCULAR VOLUME 89 fL (80-100); MONOCYTES # (AUTO) 1.1 K/uL (0.1-1.0); MONOCYTES % (AUTO) 20.1 % (2.0-9.0); NEUTROPHILS # (AUTO) 3.1 K/uL (1.8-7.7); NEUTROPHILS % (AUTO) 56.3 % (40.0-70.0); PLATELET COUNT (AUTO) 186 K/uL (150-450); RED BLOOD CELL COUNT(AUTO) 4.48 MIL/uL (4.50-5.90); RED CELL DISTRIBUTION WIDTH 14.4 % (11.5-14.5)
[2021-12-02] MEDS ORDERED: ACETAMINOPHEN 325 MG TABLET PO PRN ×2 (01:30→10:00)
[2021-12-02] MEDS ORDERED: MethylPREDNISolone SOD SUCC 125 MG/2 ML VIAL IVP ONE (01:30)
[2021-12-02] MEDS ORDERED: ONDANSETRON HCL 4 MG/2 ML VIAL IVP PRN ×2 (01:30→10:00)
[2021-12-02] MEDS ORDERED: 0.9% SODIUM CHLORIDE 10 ML SYRINGE IVP PRN (01:30)
[2021-12-02] MEDS: OXYGEN THERAPY IH SCH ×3 (01:30→20:03)
[2021-12-02] MEDS ORDERED: FUROSEMIDE 40 MG/4 ML VIAL IVP ONE (01:30)
[2021-12-02 01:31] LABS: INR 1.1 (0.9-1.1); PROTHROMBIN TIME 11.2 SEC (9.4-11.6)
[2021-12-02 01:35] LABS: CALCIUM, TOTAL 10.1 mg/dL (8.8-10.5); CREATININE 1.25 mg/dL (0.60-1.30); POTASSIUM 4.5 mmol/L (3.5-5.1)
[2021-12-02 02:00] LABS: ALBUMIN 3.8 g/dL (3.4-5.0); BILIRUBIN,TOTAL 0.4 mg/dL (0.1-1.0); TOTAL PROTEIN, SERUM 7.3 g/dL (6.4-8.2)
[2021-12-02] MEDS ORDERED: IPRATROPIUM BROMIDE 0.5 MG/2.5 ML NEB SOLUTION NEB ONE ×2 (02:30→07:30)
[2021-12-02] MEDS ORDERED: ALBUTEROL SULFATE 2.5 MG/0.5 ML NEB SOLUTION NEB ONE ×2 (02:30→07:30)
[2021-12-02 02:33] LABS: COVID AG,FIA SOURCE NASAL SWAB
[2021-12-02 02:40] LABS: APPEARANCE,URINE CLEAR (CLEAR); BILIRUBIN,URINE NEGATIVE (NEGATIVE); GLUCOSE, URINE (UA) NEGATIVE (NEGATIVE); KETONES,URINE NEGATIVE (NEGATIVE); LEUKOCYTE ESTERASE ,URINE NEGATIVE (NEGATIVE); NITRATE,URINE NEGATIVE (NEGATIVE); OCCULT BLOOD,URINE NEGATIVE (NEGATIVE); PROTEIN,URINE NEGATIVE (NEGATIVE); UROBILINOGEN,URINE <=1.0 mg/dL (<=1.0)
[2021-12-02] MEDS: MethylPREDNISolone SOD SUCC 125 MG/2 ML VIAL IVP SCH ×2 (15:39→23:39)
[2021-12-02] MEDS: ALBUTEROL SULFATE 2.5 MG/0.5 ML NEB SOLUTION NEB PRN (16:35)
[2021-12-02 17:27] VITALS: BP 109/67
[2021-12-02] MEDS ORDERED: INFLUENZA VIRUS VACCINE QVS 2022-23 (6MO+)/PF 60 MCG/0.5 ML SYRINGE IM. ONE (19:00)
[2021-12-02 19:50] VITALS: BP 90/66
[2021-12-02] MEDS: DOCUSATE SODIUM 100 MG CAPSULE PO SCH (20:02)
[2021-12-02] MEDS: APIXABAN 5 MG TABLET PO SCH (20:02)
[2021-12-02] MEDS: FAMOTIDINE 20 MG TABLET PO SCH (20:02)
[2021-12-02 21:25] VITALS: BP 108/71
[2021-12-02 23:50] VITALS: BP 103/73
[2021-12-03 03:14] VITALS: BP 91/60
[2021-12-03] MEDS ORDERED: 0.9% SODIUM CHLORIDE 5 ML NEB SOLUTION NEB ONE (03:15)
[2021-12-03] MEDS: ALBUTEROL SULFATE 2.5 MG/0.5 ML NEB SOLUTION NEB PRN ×2 (03:39→22:37)
[2021-12-03 08:50] VITALS: BP 85/63
[2021-12-03] MEDS: METOPROLOL SUCCINATE 25 MG ER TABLET PO SCH (08:51)
[2021-12-03 08:58] VITALS: BP 114/74
[2021-12-03] MEDS: OXYGEN THERAPY IH SCH ×2 (09:07→20:00)
[2021-12-03] MEDS: MethylPREDNISolone SOD SUCC 125 MG/2 ML VIAL IVP SCH ×3 (09:07→23:39)
[2021-12-03] MEDS: APIXABAN 5 MG TABLET PO SCH ×2 (09:08→20:32)
[2021-12-03] MEDS: FUROSEMIDE 20 MG TABLET PO SCH ×2 (09:08→20:32)
[2021-12-03] MEDS: DOCUSATE SODIUM 100 MG CAPSULE PO SCH ×2 (09:08→20:32)
[2021-12-03] MEDS: FAMOTIDINE 20 MG TABLET PO SCH ×2 (09:09→20:32)
[2021-12-03 12:15] VITALS: BP 105/71
[2021-12-03 16:20] VITALS: BP 106/70
[2021-12-03 20:25] VITALS: BP 104/72
[2021-12-04 00:25] VITALS: BP 97/58
[2021-12-04 04:22] VITALS: BP 101/66
[2021-12-04 08:56] VITALS: BP 102/59
[2021-12-04] MEDS: OXYGEN THERAPY IH SCH ×2 (09:04→20:00)
[2021-12-04] MEDS: MethylPREDNISolone SOD SUCC 125 MG/2 ML VIAL IVP SCH ×2 (09:05→15:52)
[2021-12-04] MEDS: FUROSEMIDE 20 MG TABLET PO SCH ×2 (09:05→20:57)
[2021-12-04] MEDS: DOCUSATE SODIUM 100 MG CAPSULE PO SCH ×2 (09:05→20:57)
[2021-12-04] MEDS: APIXABAN 5 MG TABLET PO SCH ×2 (09:06→20:57)
[2021-12-04] MEDS: METOPROLOL SUCCINATE 25 MG ER TABLET PO SCH (09:06)
[2021-12-04] MEDS: FAMOTIDINE 20 MG TABLET PO SCH ×2 (09:06→20:57)
[2021-12-04 12:15] VITALS: BP 111/70
[2021-12-04 16:03] VITALS: BP 108/72
[2021-12-04] MEDS: ALBUTEROL SULFATE 2.5 MG/0.5 ML NEB SOLUTION NEB PRN (20:19)
[2021-12-04 20:40] VITALS: BP 93/53
[2021-12-05] MEDS: MethylPREDNISolone SOD SUCC 125 MG/2 ML VIAL IVP SCH ×2 (00:03→08:47)
[2021-12-05 00:26] VITALS: BP 101/73
[2021-12-05] MEDS ORDERED: ALPRAZolam 0.5 MG TABLET PO PRN (04:15)
[2021-12-05 04:30] VITALS: BP 122/86
[2021-12-05 07:35] VITALS: BP 110/69
[2021-12-05] MEDS: OXYGEN THERAPY IH SCH (08:00)
[2021-12-05] MEDS: FAMOTIDINE 20 MG TABLET PO SCH (08:47)
[2021-12-05] MEDS: DOCUSATE SODIUM 100 MG CAPSULE PO SCH (08:47)
[2021-12-05] MEDS: METOPROLOL SUCCINATE 25 MG ER TABLET PO SCH (08:47)
[2021-12-05] MEDS: FUROSEMIDE 20 MG TABLET PO SCH (08:47)
[2021-12-05] MEDS: APIXABAN 5 MG TABLET PO SCH (08:47)
[2021-12-05] MEDS ORDERED: 0.9% SODIUM CHLORIDE 5 ML NEB SOLUTION NEB ONE (09:28)
[2021-12-05] MEDS: ALBUTEROL SULFATE 2.5 MG/0.5 ML NEB SOLUTION NEB PRN ×2 (09:34→18:58)
[2021-12-05 11:40] VITALS: BP 113/74
[2021-12-05] MEDS ORDERED: MONTELUKAST SODIUM 10 MG TABLET PO SCH (12:45)
[2021-12-05] MEDS ORDERED: PredniSONE 20 MG TABLET PO SCH (12:45)
[2021-12-05] MEDS ORDERED: APIX5TAB PO (13:23)
[2021-12-05] MEDS ORDERED: ATOR20TA86 PO ×2 (13:24→13:40)
[2021-12-05] MEDS ORDERED: DOCU-385 PO (13:25)
[2021-12-05] MEDS ORDERED: FAMO20 PO (13:26)
[2021-12-05] MEDS ORDERED: FURO20 PO (13:26)
[2021-12-05] MEDS ORDERED: LISI-892 PO (13:27)
[2021-12-05] MEDS ORDERED: METO25XL PO (13:28)
[2021-12-05] MEDS ORDERED: MONT-35 PO (13:28)
[2021-12-05] MEDS ORDERED: PRED-554 PO (13:30)
[2021-12-05] MEDS ORDERED: ACET650S24 PR (13:32)
[2021-12-05] MEDS ORDERED: AUD NEB (13:35)
[2021-12-05] MEDS ORDERED: ACET-2247 PO (13:37)
[2021-12-05] MEDS ORDERED: ATORVASTATIN CALCIUM 20 MG TABLET PO SCH (21:00)
[2021-12-06] MEDS ORDERED: LISINOPRIL 5 MG TABLET PO SCH (09:00)
== END 2021-12-05 19:26 | DRG 291 ==
LOC: EMS 00:41 → 5N 15:50
PROVIDERS: ADMIT Internal Medicine; ATTEND Internal Medicine
DX: I11.0 Hypertensive heart disease with heart failure (principal); I50.33 Acute on chronic diastolic (congestive) heart failure; J96.21 Acute and chronic respiratory failure with hypoxia; J44.1 Chronic obstructive pulmonary disease with (acute) exacerbation; I48.0 Paroxysmal atrial fibrillation; I07.1 Rheumatic tricuspid insufficiency; E66.01 Morbid (severe) obesity due to excess calories; Z20.822 Contact with and (suspected) exposure to COVID-19; I49.5 Sick sinus syndrome; Z95.0 Presence of cardiac pacemaker; Z79.899 Other long term (current) drug therapy; Z68.36 Body mass index [BMI] 36.0-36.9, adult
CPT/HCPCS: 71045; 80053; 81003; 82550; 83880; 84484; 85025; 85610; 85730; 93005; 94640; 97162; 99285; J1940; J2930; 36415-L1; 36415-TC; J7613